=== PATIENT | male | born 1985 | race African-American/Black ===

== ENCOUNTER 2016-11-18 03:00 | Emergency (ER) | payer OTHER ==
[~2016-11-18] VITALS: Ht 177.8 cm; Wt 79.4 kg
--- NOTE | 2016-11-18 03:22 | PHYS DOC ---
Adult General Chief Complaint Chief Complaint: ABDOMINAL PAIN HPI HPI Patient is a 31 year old M who presents with epigastric pain 2 days. Patient states he's had epigastric pain for the past 2 days with nausea and vomiting and diarrhea. Patient denies any fevers. Patient denies any previous abdominal surgeries. Patient states nothing except pain worse or better. Patient denies any heavy alcohol use or illicit drug use. Patient rates his pain 10 out of 10 nonradiating. Patient has no other complaints. Review of Systems Review of Systems GEN: Denies fevers, chills, sweats HEENT: Denies blurred vision, sore throat CV: Denies chest pain RESP: Denies shortness of air, cough GI: Epigastric pain with n/v/d NEURO: Denies confusion, dizziness MSK: Denies weakness, joint pain/swelling Current Medications Current Medications Current Medications Medications (Trade) Dose Ordered Sig/Miguel Start Time Stop Time Status Last Admin Dose Admin Ondansetron HCl (Zofran) 4 mg 1X ONCE 11/18/16 03:15 11/18/16 03:16 UNV Sodium Chloride 1,000 ml @ 1,000 mls/hr 1X ONCE 11/18/16 03:30 11/18/16 04:29 Allergies Allergies Allergies Coded Allergies Type Severity Reaction Last Updated Verified No Known Drug Allergies 11/18/16 No Physical Exam Physical Exam GEN.: Mild distress. Alert and oriented. HEENT: Head is normocephalic, atraumatic NECK: Supple. LUNGS: CTAB. HEART: RRR, S1, S2 present. Peripheral pulses intact ABDOMEN: Soft, positive tenderness palpation over the epigastric area, no rebound tenderness, no guarding, no abdominal distention. Positive bowel sounds. EXTREMITIES: Without any cyanosis. NEUROLOGIC: Normal speech, normal tone PSYCHIATRIC: Normal affect, normal mood. SKIN: No ulcerations Current Patient Data Vital Signs Laboratory Tests Test 11/18/16 03:20 White Blood Count 4.8 x10^3/uL Red Blood Count 5.28 x10^6/uL Hemoglobin 14.7 g/dL Hematocrit 44.1 % Mean Corpuscular Volume 83 fL Mean Corpuscular Hemoglobin 28 pg Mean Corpuscular Hemoglobin Concent 33 g/dL Red Cell Distribution Width 14.6 % Platelet Count 183 x10^3/uL Neutrophils (%) (Auto) 59 % Lymphocytes (%) (Auto) 31 % Monocytes (%) (Auto) 8 % Eosinophils (%) (Auto) 2 % Basophils (%) (Auto) 1 % Neutrophils # (Auto) 2.8 x10^3uL Lymphocytes # (Auto) 1.5 x10^3/uL Monocytes # (Auto) 0.4 x10^3/uL Eosinophils # (Auto) 0.1 x10^3/uL Basophils # (Auto) 0.0 x10^3/uL Sodium Level 142 mmol/L Potassium Level 4.1 mmol/L Chloride Level 108 mmol/L Carbon Dioxide Level 28 mmol/L Anion Gap 6 Blood Urea Nitrogen 9 mg/dL Creatinine 1.2 mg/dL Estimated GFR (Cockcroft-Gault) 85.4 BUN/Creatinine Ratio 8 Glucose Level 94 mg/dL Calcium Level 8.5 mg/dL Total Bilirubin 0.6 mg/dL Aspartate Amino Transf (AST/SGOT) 32 U/L Alanine Aminotransferase (ALT/SGPT) 25 U/L Alkaline Phosphatase 50 U/L Total Protein 6.5 g/dL Albumin 3.5 g/dL Albumin/Globulin Ratio 1.2 Lipase 110 U/L Current Medications Medications (Trade) Dose Ordered Sig/Miguel Route PRN Reason Start Time Stop Time Status Last Admin Dose Admin Sodium Chloride 1,000 ml @ 1,000 mls/hr 1X ONCE IV 11/18/16 03:30 11/18/16 04:29 DC 11/18/16 03:30 Ondansetron HCl (Zofran) 4 mg 1X ONCE IV 11/18/16 03:30 11/18/16 03:31 DC 11/18/16 03:30 Famotidine (Pepcid) 20 mg 1X ONCE IVP 11/18/16 03:45 11/18/16 03:46 DC 11/18/16 03:42 Iohexol (Omnipaque 300 Mg/ml) 75 ml 1X ONCE IV 11/18/16 04:00 11/18/16 04:01 DC 11/18/16 03:34 Info (Do NOT chart on this entry -- for MONITORING) 1 each PRN DAILY PRN MC SEE COMMENTS 11/18/16 03:30 11/20/16 03:29 EKG EKG [] Radiology/Procedures Radiology/Procedures CT the abdomen and pelvis: IMPRESSION: 1. Free fluid is seen within the pelvis which is an abnormal finding in a male patient. 2. The appendix is retrocecal in location and does measure slightly enlarged but a large portion this measurement is secondary to air and debris within the lumen. There is not definitive adjacent inflammation at this time. Given the lack of definitive adjacent inflammation this does not fill all of the CT criteria for appendicitis. If further imaging evaluation is desired follow-up CT could be obtained at a later time to assess whether there is further increase in size of the appendix or development of definitive adjacent inflammation to suggest appendicitis. 3. There is some fluid-filled distention of the cecum. In addition the rectosigmoid region is decompressed with the wall appearing mildly prominent. This prominence the wall could all be from lack of distention but cannot exclude pathologic causes such as colitis. This is a questionable finding.[] Course & Med Decision Making Course & Med Decision Making Pertinent Labs and Imaging studies reviewed. (See chart for details) ED course: Patient was seen and examined emergency room abdominal workup was ordered along with a CT scan abdomen pelvis 0440: Patient was updated on CT findings and plan to transfer to [place] for observation for possible acute appendicitis. 0451: Discussed CC/HP/PMH with Dr. Maldonado and recommends admit with surgery on consult 0500: Discussed CC/HP/PMH with Dr. Sanchez and recommends admit to medicine MDM: After reviewing the chart, CC/HPI/PMH, physical exam, [lab results], [ radiological results], I have concerns the patient could have acute early appendicitis therefore will omit the patient for further evaluation and management to medicine with surgery on consult. [] Dragon Disclaimer Dragon Disclaimer This chart was dictated in whole or in part using Voice Recognition software in a busy, high-work load, and often noisy Emergency Department environment. It may contain unintended and wholly unrecognized errors or omissions. Departure Departure: Impression: Primary Impression: Retrocecal appendix Additional Impressions: Intractable abdominal pain Intractable nausea and vomiting Disposition: 02 XFER SHT-TRM HOSP (Dr. Maldonado at [facility]) Condition: STABLE Referrals: PCP,NO (PCP) Problem Qualifiers JONATHAN VALERO DO Nov 18, 2016 03:22
[2016-11-18] MEDS ORDERED: CONTRAST GIVEN MC PRN (03:30)
[2016-11-18] MEDS ORDERED: ONDANSETRON PF 4 MG/2 ML VIAL. IV ONE (03:30)
[2016-11-18] MEDS ORDERED: IV NORMAL SALINE 1,000ML 1,000 ML IV ONE (03:30)
[2016-11-18 03:34] LABS: BASO % 1 % (0-3); EOS # 0.1 x10^3/uL (0.0-0.7); EOS % 2 % (0-3); HEMATOCRIT 44.1 % (39.0-53.0); HEMOGLOBIN 14.7 g/dL (13.0-17.5); LYMPH # 1.5 x10^3/uL (1.0-4.8); LYMPH % 31 % (24-48); MEAN CORPUSCULAR HEMOGLOBIN 28 pg (25-35); MEAN CORPUSCULAR HGB CONC 33 g/dL (31-37); MEAN CORPUSCULAR VOLUME 83 fL (79-100); MONO # 0.4 x10^3/uL (0.0-1.1); MONO % 8 % (0-9); NEUT # 2.8 x10^3uL (1.8-7.7); NEUT % 59 % (31-73); PLATELET COUNT 183 x10^3/uL (140-400); RED BLOOD COUNT 5.28 x10^6/uL (4.30-5.70); RED CELL DISTRIBUTION WIDTH 14.6 % (11.5-14.5); WHITE BLOOD COUNT 4.8 x10^3/uL (4.0-11.0)
[2016-11-18] MEDS ORDERED: FAMOTIDINE 20 MG/2 ML VIAL IVP ONE (03:45)
[2016-11-18 03:54] LABS: ALBUMIN 3.5 g/dL (3.4-5.0); ALBUMIN/GLOBULIN RATIO 1.2 (1.0-1.7); CALCIUM 8.5 mg/dL (8.5-10.1); CREATININE 1.2 mg/dL (0.7-1.3); GFR 85.4; POTASSIUM 4.1 mmol/L (3.5-5.1); TOTAL BILIRUBIN 0.6 mg/dL (0.2-1.0); TOTAL PROTEIN 6.5 g/dL (6.4-8.2)
[2016-11-18] MEDS ORDERED: IOHEXOL 300 MG/ML 75 ML VIAL. IV ONE (04:00)
--- NOTE | 2016-11-18 04:26 | RAD ---
INDICATION: [id number] Omni 300 75cc: Severe mid upper abdominal pain x 3 days. No priors. COMPARISON: None. TECHNIQUE: Axial CT images were obtained through the abdomen and pelvis with intravenous contrast. One or more of the following individualized dose reduction techniques were utilized for this examination: 1. Automated exposure control; 2. Adjustment of the mA and/or kV according to patient size; 3. Use of iterative reconstruction technique. FINDINGS: Chest Base: Partially imaged without gross abnormality. Vessels: No abdominal aortic aneurysm. Liver/Biliary: Subcentimeter low-attenuation lesion within liver. Nonspecific appearance but commonly benign in a patient of this age unless they have a history of neoplasm. Pancreas: No peripancreatic edema. Spleen: Heterogenous enhancement. Kidneys/Adrenal: No hydronephrosis. Bladder: Largely decompressed. GI: Small free fluid in the pelvis. The appendix is retrocecal in location located laterally. There is air within the appendix. The appendix measures up to about 8-9 mm but a portion of this measurement is secondary to air and intraluminal content. There is not definitive surrounding stranding. The distal colon is not distended but wall may be mildly prominent. There is some fluid filled distention of the proximal colon with cecum measuring up to 75 mm. IMPRESSION: 1. Free fluid is seen within the pelvis which is an abnormal finding in a male patient. 2. The appendix is retrocecal in location and does measure slightly enlarged but a large portion this measurement is secondary to air and debris within the lumen. There is not definitive adjacent inflammation at this time. Given the lack of definitive adjacent inflammation this does not fill all of the CT criteria for appendicitis. If further imaging evaluation is desired follow-up CT could be obtained at a later time to assess whether there is further increase in size of the appendix or development of definitive adjacent inflammation to suggest appendicitis. 3. There is some fluid-filled distention of the cecum. In addition the rectosigmoid region is decompressed with the wall appearing mildly prominent. This prominence the wall could all be from lack of distention but cannot exclude pathologic causes such as colitis. This is a questionable finding. Electronically signed by: Antoine Palacio MD (11/18/2016 4:23 AM) [id number]
[2016-11-18 04:55] VITALS: BP 130/63
[2016-11-18] MEDS ORDERED: HYDROmorphone PF 1 MG/ML DISP.SYRIN IV ONE (05:00)
== END 2016-11-18 05:35 | disposition short-term general hospital (02) ==
LOC: ER 03:00
DX: K37 Unspecified appendicitis (principal)
CPT/HCPCS: 36415; 74177; 80053; 83690; 85025; 96361; 96374; 96375; 99285; J1170; J2405; Q9967; S0028; J7030